=== PATIENT | female | born 1995 | race Two or more races ===

== ENCOUNTER 2017-06-21 23:31 | Emergency (ER) | payer SELFPAY ==
[~2017-06-21] VITALS: Ht 154.9 cm; Wt 72.6 kg
[~2017-06-21 23:31] MED LIST: LORAZEPAM0.5 MG ORAL; SYNTHROID25 MCG ORAL
[2017-06-21 23:35] VITALS: BP 106/75
[2017-06-22] VITALS (7 sets, daily range): BP systolic 91–103; BP diastolic 54–67
[2017-06-22 00:53] LABS: BASOPHILS % (AUTO) 0.8 % (0.0-2.0); EOSINOPHILS % (AUTO) 0.9 % (0.0-3.0); LYMPHOCYTES % (AUTO) 23.8 % (20.0-45.0); MEAN CORPUSCULAR HEMOGLOBIN 29.1 PG (27.0-31.0); MEAN CORPUSCULAR HGB CONC 33.6 G/DL (32.0-36.0); MEAN CORPUSCULAR VOLUME 87 FL (80-99); MEAN PLATELET VOLUME 10.6 FL (6.5-10.1); MONOCYTES % (AUTO) 7.7 % (1.0-10.0); NEUTROPHILS % (AUTO) 66.9 % (45.0-75.0); PLATELET COUNT 180 K/UL (150-450); RED BLOOD COUNT 3.88 M/UL (4.20-5.40); RED CELL DISTRIBUTION WIDTH 12.2 % (11.6-14.8); WHITE BLOOD COUNT 8.5 K/UL (4.8-10.8)
[2017-06-22 01:11] LABS: ACETAMINOPHEN < 10 ug/mL (10-30); ALANINE AMINOTRANSFERASE 6 U/L (3-33); ALBUMIN/GLOBULIN RATIO 1.3 (1.0-2.7); ALCOHOL < 10 mg/dL; ANION GAP 13 (5-15); ASPARTATE AMINO TRANSFERASE 14 U/L (5-40); CALCIUM 9.2 mg/dL (8.6-10.2); CARBON DIOXIDE 25 mEQ/L (20-30); CHLORIDE 103 mEQ/L (98-107); CREATININE 0.5 mg/dL (0.5-0.9); GLOMERULAR FILTRATION RATE > 60 mL/min (>60); HEMOLYSIS 0; POTASSIUM 3.3 mEQ/L (3.4-4.9); SODIUM 141 mEQ/L (135-145)
--- NOTE | 2017-06-22 01:34 | Emergency Room Report ---
History of Present Illness General Chief Complaint: Overdose Source: Patient, Family Member Present Illness HPI A 21-year-old female with a history of depression. She has multiple suicide attempts in the past. She took several Ativan tonight. Also cardiac or so. She said she been feeling depressed. Mom called 911. Mom said that his been worse since she had a miscarriage last year. Patient denies alcohol or other drug use. [facility] a previous psychiatric suicidal attempt. Allergies: Coded Allergies: No Known Allergies (Unverified , 06/21/17) Patient History Past Medical History: see triage record, old chart reviewed Past Surgical History: none Family History: none Social History: single Now: No Immunizations: other Reviewed Nursing Documentation: PMH: Agreed, PSxH: Agreed Nursing Documentation-PMH Past Medical History: No History, Except For History Of Psychiatric Problem: Yes - bipolar, depression Review of Systems ENT: Denies: sore throat Cardiovascular: Denies: chest pain, palpitations Gastrointestinal/Abdominal: Denies: nausea, vomiting, diarrhea Musculoskeletal: Denies: back problems Skin: Denies: rash Neurological: Denies: ANDERSON, seizures All Other Systems: negative except mentioned in HPI Physical Exam Vital Signs Date Time Temp Pulse Resp B/P (MAP) Pulse Ox O2 Delivery O2 Flow Rate FiO2 06/21/17 23:23 99.0 73 16 106/75 99 Room Air vitals normal Sp02 EP Interpretation: reviewed, normal General Appearance: no apparent distress, non-toxic, other - Sleepy Head: normocephalic, atraumatic Eyes: PERRL, EOMI ENT: oropharynx normal Neck: supple/symm/no masses Respiratory: effort normal, no rhonchi, no wheezing Cardiovascular: no murmur, gallop, rub Gastrointestinal: non-tender, no mass, non-distended, no rebound/guarding, normal bowel sounds Musculoskeletal: gait & station normal Neurologic: oriented x3, sensory intact, motor strength/tone normal Psychiatric: other - Crying Skin: no rash, normal palpation Medical Decision Making Diagnostic Impression: Primary Impression: Drug overdose Qualified Codes: T50.902A - Poisoning by unspecified drugs, medicaments and biological substances, intentional self-harm, initial encounter Additional Impression: Suicidal ideation ER Course Patient presents with suicidal deviation and drug overdose. She is now more awake and drug screen is negative however. She does have multiple small abrasion over both wrists. She is medically clear for psychiatric evaluation. Laboratory Tests Test 06/22/17 00:00 06/22/17 01:30 White Blood Count 8.5 K/UL (4.8-10.8) Red Blood Count 3.88 M/UL (4.20-5.40) L Hemoglobin 11.3 G/DL (12.0-16.0) L Hematocrit 33.6 % (37.0-47.0) L Mean Corpuscular Volume 87 FL (80-99) Mean Corpuscular Hemoglobin 29.1 PG (27.0-31.0) Mean Corpuscular Hemoglobin Concent 33.6 G/DL (32.0-36.0) Red Cell Distribution Width 12.2 % (11.6-14.8) Platelet Count 180 K/UL (150-450) Mean Platelet Volume 10.6 FL (6.5-10.1) H Neutrophils (%) (Auto) 66.9 % (45.0-75.0) Lymphocytes (%) (Auto) 23.8 % (20.0-45.0) Monocytes (%) (Auto) 7.7 % (1.0-10.0) Eosinophils (%) (Auto) 0.9 % (0.0-3.0) Basophils (%) (Auto) 0.8 % (0.0-2.0) Sodium Level 141 mEQ/L (135-145) Potassium Level 3.3 mEQ/L (3.4-4.9) L Chloride Level 103 mEQ/L (98-107) Carbon Dioxide Level 25 mEQ/L (20-30) Anion Gap 13 (5-15) Blood Urea Nitrogen 6 mg/dL (7-23) L Creatinine 0.5 mg/dL (0.5-0.9) Estimat Glomerular Filtration Rate > 60 mL/min (>60) Glucose Level 108 mg/dL (74-106) H Calcium Level 9.2 mg/dL (8.6-10.2) Total Bilirubin 0.3 mg/dL (0.0-1.2) Aspartate Amino Transf (AST/SGOT) 14 U/L (5-40) Alanine Aminotransferase (ALT/SGPT) 6 U/L (3-33) Alkaline Phosphatase 69 U/L (35-104) Total Protein 7.0 g/dL (6.6-8.7) Albumin 4.0 g/dL (3.5-5.2) Globulin 3.0 g/dL Albumin/Globulin Ratio 1.3 (1.0-2.7) Salicylates Level < 1 mg/dL (10-30) L Acetaminophen Level < 10 ug/mL (10-30) L Serum Alcohol < 10 mg/dL Urine Color Yellow Urine Appearance Clear Urine pH 6 (4.5-8.0) Urine Specific [place] 1.020 (1.005-1.035) Urine Protein 2+ (NEGATIVE) H Urine Glucose (UA) Negative (NEGATIVE) Urine Ketones 2+ (NEGATIVE) H Urine Occult Blood 5+ (NEGATIVE) H Urine Nitrite Negative (NEGATIVE) Urine Bilirubin Negative (NEGATIVE) Urine Urobilinogen Normal MG/DL (0.0-1.0) Urine Leukocyte Esterase 1+ (NEGATIVE) H Urine RBC 60-80 /HPF (0 - 2) H Urine WBC 2-4 /HPF (0 - 2) Urine Squamous Epithelial Cells Few /LPF (NONE/OCC) Urine Bacteria Few /HPF (NONE) Urine HCG, Qualitative Negative Urine Opiates Screen Negative (NEGATIVE) Urine Barbiturates Screen Negative (NEGATIVE) Phencyclidine (PCP) Screen Negative (NEGATIVE) Urine Amphetamines Screen Negative (NEGATIVE) Urine Benzodiazepines Screen Negative (NEGATIVE) Urine Cocaine Screen Negative (NEGATIVE) Urine Marijuana (THC) Screen Negative (NEGATIVE) Lab Results Impression labs normal Last Vital Signs Date Time Temp Pulse Resp B/P (MAP) Pulse Ox O2 Delivery O2 Flow Rate FiO2 06/21/17 23:35 99.0 16 106/75 99 Room Air 06/21/17 23:35 73 Status: improved Disposition: D/C TO LAW ENFORCEMENT IN [facility] Condition: Stable ALICE RAPHAEL M.D. Jun 22, 2017 01:34
[2017-06-22 01:47] LABS: APPEARANCE,URINE CLEAR; KETONES,URINE 2+ (NEGATIVE); PH,URINE 6 (4.5-8.0); PROTEIN,URINE 2+ (NEGATIVE); UROBILINOGEN,URINE NORMAL MG/DL (0.0-1.0)
[2017-06-22 01:53] LABS: LEUKOCYTE ESTERASE ,URINE 1+ (NEGATIVE); NITRITE,URINE NEGATIVE (NEGATIVE); RBC,URINE 60-80 /HPF (0 - 2); SQUAMOUS EPITHELIAL CELL,UR FEW /LPF (NONE/OCC)
[2017-06-22 01:54] LABS: BACTERIA,URINE FEW /HPF
[2017-06-22] MEDS ORDERED: LORazepam Inj 2mg/ml 1ml ONE (11:32)
[2017-06-22] MEDS ORDERED: LORazepam Inj 2mg/ml 1ml IV ONE (12:00)
--- NOTE | 2017-06-22 14:03 | Consultation ---
History of Present Illness General Chief Complaint: Overdose Present Illness HPI 21-year-old female with a history of depression, attempted suicide by taking 6 ativan (1mg). the pt endorses depressed mood, anhedonia, decrease energy and worthlessness. the pt stated that she has had a miscarriage and "the baby was supposed to born yesterday." the pt's mom was at bedside the pt has history of cutting and overdose in past. the pt was calm and cooperative and stated that she has a psychiatrist and would like to be discharged. the pts mom stated that she would like to take her home. the pt is seeing her psychiatrist on jun 29. she is on paxil and ativan. the pt is not endorsing any manic/psychotic/anxiety sxs/ the pt is not suicidal/homicidal Allergies: Coded Allergies: No Known Allergies (Unverified , 06/21/17) Medication History Scheduled Levothyroxine Sodium* (Synthroid*), 25 MCG ORAL DAILY, (Reported) Lorazepam* (Lorazepam*), 0.5 MG ORAL THREE TIMES A DAY, (Reported) Patient History History Provided By: Patient, Family Member, PMD Healthcare decision maker Resuscitation status Advanced Directive on File Past Medical/Surgical History Past Medical/Surgical History: (1) Drug overdose (2) Suicidal ideation Review of Systems Constitutional: Reports: malaise, weakness Psychiatric: Reports: see HPI, prior hx, depressed feelings Physical Exam General Appearance: no apparent distress, alert Neurologic: alert, oriented x 3, responsive, depressed affect Last 24 Hour Vital Signs Date Time Temp Pulse Resp B/P (MAP) Pulse Ox O2 Delivery O2 Flow Rate FiO2 06/22/17 13:30 60 14 95/54 99 Room Air 06/22/17 10:35 62 15 93/65 99 Room Air 06/22/17 08:43 55 14 103/67 99 Room Air 06/22/17 06:30 97.6 54 15 100/63 99 Room Air 06/22/17 04:30 58 14 101/65 98 Room Air 06/22/17 03:00 97.8 64 16 91/58 100 Room Air 06/21/17 23:35 99.0 16 106/75 99 Room Air 06/21/17 23:35 73 16 Room Air 06/21/17 23:23 99.0 73 16 106/75 99 Room Air Intake and Output 06/22/17 06/23/17 19:00 07:00 # Voids 2 Laboratory Tests Test 06/22/17 00:00 06/22/17 01:30 White Blood Count 8.5 K/UL (4.8-10.8) Red Blood Count 3.88 M/UL (4.20-5.40) L Hemoglobin 11.3 G/DL (12.0-16.0) L Hematocrit 33.6 % (37.0-47.0) L Mean Corpuscular Volume 87 FL (80-99) Mean Corpuscular Hemoglobin 29.1 PG (27.0-31.0) Mean Corpuscular Hemoglobin Concent 33.6 G/DL (32.0-36.0) Red Cell Distribution Width 12.2 % (11.6-14.8) Platelet Count 180 K/UL (150-450) Mean Platelet Volume 10.6 FL (6.5-10.1) H Neutrophils (%) (Auto) 66.9 % (45.0-75.0) Lymphocytes (%) (Auto) 23.8 % (20.0-45.0) Monocytes (%) (Auto) 7.7 % (1.0-10.0) Eosinophils (%) (Auto) 0.9 % (0.0-3.0) Basophils (%) (Auto) 0.8 % (0.0-2.0) Sodium Level 141 mEQ/L (135-145) Potassium Level 3.3 mEQ/L (3.4-4.9) L Chloride Level 103 mEQ/L (98-107) Carbon Dioxide Level 25 mEQ/L (20-30) Anion Gap 13 (5-15) Blood Urea Nitrogen 6 mg/dL (7-23) L Creatinine 0.5 mg/dL (0.5-0.9) Estimat Glomerular Filtration Rate > 60 mL/min (>60) Glucose Level 108 mg/dL (74-106) H Calcium Level 9.2 mg/dL (8.6-10.2) Total Bilirubin 0.3 mg/dL (0.0-1.2) Aspartate Amino Transf (AST/SGOT) 14 U/L (5-40) Alanine Aminotransferase (ALT/SGPT) 6 U/L (3-33) Alkaline Phosphatase 69 U/L (35-104) Total Protein 7.0 g/dL (6.6-8.7) Albumin 4.0 g/dL (3.5-5.2) Globulin 3.0 g/dL Albumin/Globulin Ratio 1.3 (1.0-2.7) Salicylates Level < 1 mg/dL (10-30) L Acetaminophen Level < 10 ug/mL (10-30) L Serum Alcohol < 10 mg/dL Urine Color Yellow Urine Appearance Clear Urine pH 6 (4.5-8.0) Urine Specific [place] 1.020 (1.005-1.035) Urine Protein 2+ (NEGATIVE) H Urine Glucose (UA) Negative (NEGATIVE) Urine Ketones 2+ (NEGATIVE) H Urine Occult Blood 5+ (NEGATIVE) H Urine Nitrite Negative (NEGATIVE) Urine Bilirubin Negative (NEGATIVE) Urine Urobilinogen Normal MG/DL (0.0-1.0) Urine Leukocyte Esterase 1+ (NEGATIVE) H Urine RBC 60-80 /HPF (0 - 2) H Urine WBC 2-4 /HPF (0 - 2) Urine Squamous Epithelial Cells Few /LPF (NONE/OCC) Urine Bacteria Few /HPF (NONE) Urine HCG, Qualitative Negative Urine Opiates Screen Negative (NEGATIVE) Urine Barbiturates Screen Negative (NEGATIVE) Phencyclidine (PCP) Screen Negative (NEGATIVE) Urine Amphetamines Screen Negative (NEGATIVE) Urine Benzodiazepines Screen Negative (NEGATIVE) Urine Cocaine Screen Negative (NEGATIVE) Urine Marijuana (THC) Screen Negative (NEGATIVE) Height (Feet): 5 Height (Inches): 1.00 Weight (Pounds): 160 Assessment/Plan Status: stable Assessment/Plan mood d/o, syst neg for benzo, borderline tendencies. the pt is not at imminent [id number] -pt to follow up with psychiatrist -rec to discuss med change with psychiatrist -mom will take her home Marie Olvera M.D. Jun 22, 2017 14:03
== END 2017-06-22 15:48 | disposition home or self-care (01) ==
LOC: EDBD 23:31 → EMR 23:51
DX: T50.902A Poisoning by unspecified drugs, medicaments and biological substances, intentional self-harm, initial encounter (principal); R45.851 Suicidal ideations; F31.9 Bipolar disorder, unspecified; S60.812A Abrasion of left wrist, initial encounter; S60.811A Abrasion of right wrist, initial encounter; X58.XXXA Exposure to other specified factors, initial encounter; Y92.9 Unspecified place or not applicable
CPT/HCPCS: 36415; 80053; 80300; 81003; 81025; 85025; 96361; 96374; 99284; G0480; 80329

== ENCOUNTER 2019-02-14 11:01 | Emergency (ER) | payer SELFPAY ==
[~2019-02-14] VITALS: Ht 162.6 cm; Wt 61.2 kg
[2019-02-14] MEDS ORDERED: ATIVAN2 MG ORAL (11:02)
--- NOTE | 2019-02-14 11:05 | NUR ---
ED Nurse Note: Pt BIBA from work s/p seizure. According ot EMS, it was witnessed and she was shaking for 4 mins. Per EMS, it is a pseudo seizure that is anxiety enduced. Pt presented in the ER shaking. Denies having pain. Side rails padded and pt is sating at 100% on RA. Pt is A + O x4. Ambulatory. Skin warm to touch.
[2019-02-14 11:07] VITALS: BP 113/66
[2019-02-14] MEDS ORDERED: LORazepam Inj 2mg/ml 1ml IV ONE (11:30)
[2019-02-14 12:23] VITALS: BP 105/66
--- NOTE | 2019-02-14 12:24 | NUR ---
ER DISCHARGE NOTE: Patient is cleared to be discharged per ERMD, pt is aox4, on room air, with stable vital signs. pt was given dc and prescription instructions, pt was able to verbalize understanding, pt id band and iv site removed without complications. pt is able to ambulate with steady gait. pt took all belongings.
--- NOTE | 2019-02-14 14:03 | Emergency Room Report ---
History of Present Illness General Chief Complaint: Seizure Source: Patient, EMS Present Illness HPI 23-year-old female presents ED for evaluation. Patient brought in by EMS. Patient states that she had a "pseudoseizure" at work today. States that she has history of anxiety when anxiety gets bad she presents like a pseudoseizure. States that she sat herself on the ground. No head injury. Upon arrival patient appears tremulous and anxious. States that she takes Ativan for anxiety. States that recently she's been having more anxiety episodes due to problems at home. Denies alcohol or drug use. Denies hearing voices. No other aggravating relieving factors. Denies any other associated symptoms Allergies: Coded Allergies: No Known Allergies (Unverified , 06/21/17) Patient History Past Medical History: psych hx Past Surgical History: none Pertinent Family History: none Social History: Denies: smoking, alcohol use, drug use Last Menstrual Period: 02/14/19 Now: No Immunizations: UTD Reviewed Nursing Documentation: PMH: Agreed; PSxH: Agreed Nursing Documentation-PMH Past Medical History: No History, Except For Hx Seizures: Yes Review of Systems All Other Systems: negative except mentioned in HPI Physical Exam Vital Signs Date Time Temp Pulse Resp B/P (MAP) Pulse Ox O2 Delivery O2 Flow Rate FiO2 02/14/19 10:56 98.6 76 21 130/76 97 Room Air 02/14/19 11:07 100 Sp02 EP Interpretation: reviewed, normal General Appearance: no apparent distress, alert, GCS 15, non-toxic Head: normocephalic, atraumatic Eyes: bilateral eye normal inspection, bilateral eye PERRL ENT: hearing grossly normal, normal pharynx, no angioedema, normal voice Neck: full range of motion, supple/symm/no masses Respiratory: chest non-tender, lungs clear, normal breath sounds, speaking full sentences Cardiovascular #1: regular rate, rhythm, no edema Cardiovascular #2: 2+ carotid (R), 2+ carotid (L), 2+ radial (R), 2+ radial (L) , 2+ dorsalis pedis (R), 2+ dorsalis pedis (L) Gastrointestinal: normal bowel sounds, non tender, soft, non-distended, no guarding, no rebound Rectal: deferred Genitourinary: normal inspection, no CVA tenderness Musculoskeletal: back normal, gait/station normal, normal range of motion, non- tender Neurologic: alert, oriented x3, responsive, motor strength/tone normal, sensory intact, speech normal Psychiatric: judgement/insight normal, memory normal, no suicidal/homicidal ideation, no delusions, anxious Reflexes: 3+ bicep (R), 3+ bicep (L), 3+ tricep (R), 3+ tricep (L), 3+ knee (R) , 3+ knee (L) Skin: normal color, no rash, warm/dry, well hydrated Lymphatic: no adenopathy Medical Decision Making Diagnostic Impression: Primary Impression: Anxiety ER Course Hospital Course 23-year-old female presents with episode of pseudoseizure at work. History of anxiety. No head injury Differential diagnoses include: anxiety, seizure, psychosis Clinical course Patient placed on stretcher. on school lunch monitor. After initial history, physical exam reveals female in no acute distress. Initially on arrival patient appeared tremulous and tearful. During assessment at bedside patient appears more calm and relaxed. No focal neurological deficits. Documents history of anxiety. States that when anxiety attack gets bad she starts to have a pseudoseizure. Patient states she was prescribed Ativan by her PMD. Has not yet been seen by psychiatrist. Patient given Ativan 1 mg here. On reassessment is feeling better. Vital stable. Family at bedside to take patient home. Safe for discharge close outpatient follow-up. I'll provide mental health referrals I. I feel this is a highly complex case requiring extensive working including EKG/Rhythm strip, Xray/CT/US, Blood/urine lab work, repeat exams while in ED, and administration of strong opiates/narcotics for pain control, admission to hospital or close patient follow up. Diagnosis - anxiety Stable and discharged to home. Followup with PMD/psych. Return to ED if symptoms recur or worse Last Vital Signs Date Time Temp Pulse Resp B/P (MAP) Pulse Ox O2 Delivery O2 Flow Rate FiO2 02/14/19 12:23 98.3 75 20 105/66 98 Room Air 100 Status: improved Disposition: HOME, SELF-CARE Condition: Stable Referrals: NOT CHOSEN IPA/MD,REFERRING (PCP) [facility] + [facility] Psych ER - Peds ER - [facility] Intake Hotline - Patient Instructions: Panic Attacks, Akio-in-Euqp Alcides Araiza MD Feb 14, 2019 14:03
== END 2019-02-14 12:24 | disposition home or self-care (01) ==
LOC: EDBD 11:01 → EMR 11:25
DX: F41.9 Anxiety disorder, unspecified (principal)
CPT/HCPCS: 96374; 99284

== ENCOUNTER 2019-05-23 10:17 | Emergency (ER) | payer OTHER ==
[~2019-05-23] VITALS: Ht 154.9 cm; Wt 81.6 kg
[~2019-05-23 10:17] MED LIST changes: +ATIVAN2 MG ORAL
--- NOTE | 2019-05-23 10:26 | NUR ---
ED Nurse Note: PT BROUGHT IN BY AMBULANCE FROM WORK DUE TO SEIZURE ACTIVITY POST TICTAL. AAO X4, FOLLOWS COMMANDS WITH NON LABORED BREATHING. SEIZURE PRECAUTIONS ARE IMPLEMENTED. SEE INTERVENTIONS. WAITING FOR ORDERS.
--- NOTE | 2019-05-23 10:30 | NUR ---
ED Nurse Note: COLLECTE DBLOOD/URINE THEN SENT.
[2019-05-23 10:31] VITALS: BP 91/61
[2019-05-23 10:40] LABS: APPEARANCE,URINE SLIGHTLY CLOUDY; BASOPHILS % (AUTO) 1.6 % (0.0-2.0); BILIRUBIN, URINE NEGATIVE (NEGATIVE); COLOR,URINE PALE YELLOW; EOSINOPHILS % (AUTO) 3.6 % (0.0-3.0); GLUCOSE, URINE (UA) NEGATIVE (NEGATIVE); HEMATOCRIT 36.4 % (37.0-47.0); HEMOGLOBIN 11.9 G/DL (12.0-16.0); KETONES,URINE 1+ (NEGATIVE); LEUKOCYTE ESTERASE ,URINE 2+ (NEGATIVE); MEAN CORPUSCULAR VOLUME 87 FL (80-99); MONOCYTES % (AUTO) 6.7 % (1.0-10.0); NEUTROPHILS % (AUTO) 54.2 % (45.0-75.0); NITRITE,URINE NEGATIVE (NEGATIVE); PH,URINE 5 (4.5-8.0); PLATELET COUNT 192 K/UL (150-450); PROTEIN,URINE NEGATIVE (NEGATIVE); RED BLOOD COUNT 4.21 M/UL (4.20-5.40); RED CELL DISTRIBUTION WIDTH 12.4 % (11.6-14.8); UROBILINOGEN,URINE NORMAL MG/DL (0.0-1.0); WHITE BLOOD COUNT 6.6 K/UL (4.8-10.8)
--- NOTE | 2019-05-23 10:51 | Emergency Room Report ---
History of Present Illness General Chief Complaint: Seizure Source: Medical Record Present Illness HPI Patient is a 23-year-old female brought in by EMS after possible seizure activity. Patient a prior history of anxiety and had previously been taking Ativan. She was noted to have some episode of difficulty with respirations. This resolved spontaneously after being given medications by EMS. She had been given Versed 2.5 mg. She was noted to have some shaking episodes. She denies being . She states she only takes Ativan. She had previous history of some psychiatric disease and had previous voluntary admission to psychiatric facility. She denies any current discomfort. Allergies: Coded Allergies: No Known Allergies (Unverified , 06/21/17) Patient History Past Medical History: see triage record Last Menstrual Period: 04/24/19 Reviewed Nursing Documentation: PMH: Agreed; PSxH: Agreed Nursing Documentation-PMH Past Medical History: No History, Except For Hx Seizures: Yes Review of Systems All Other Systems: negative except mentioned in HPI Physical Exam Vital Signs Date Time Temp Pulse Resp B/P (MAP) Pulse Ox O2 Delivery O2 Flow Rate FiO2 05/23/19 10:16 97.9 88 16 90/70 (77) 99 Room Air Sp02 EP Interpretation: reviewed, normal General Appearance: normal inspection, well appearing, no apparent distress, alert, GCS 15 Head: atraumatic ENT: normal ENT inspection, hearing grossly normal, normal voice Neck: normal inspection, full range of motion, supple, no bony tend Respiratory: normal inspection, lungs clear, normal breath sounds, no respiratory distress, no retraction, no wheezing Cardiovascular #1: regular rate, rhythm, no edema Gastrointestinal: normal inspection, normal bowel sounds, non tender, soft, no guarding, no hernia Genitourinary: no CVA tenderness Musculoskeletal: normal inspection, back normal, normal range of motion Neurologic: normal inspection, alert, oriented x3, responsive, yeast culture developer III-XII nml as tested, speech normal Psychiatric: normal inspection, judgement/insight normal, mood/affect normal Medical Decision Making Diagnostic Impression: Primary Impression: Anxiety ER Course Patient presented for difficulty with respirations and shaking episode. Differential diagnosis included anxiety, medication withdrawal, allergic reaction, seizure among others. Patient has a benign exam and does not appear to require any further imaging or laboratory testing at this time. Patient appears to have some anxiety. She is given benzodiazepine with improvement.Patient was noted to have unremarkable laboratory testing as well as negative test. Patient was noted to have improvement after medications. She states she felt better want to go home. Patient does not appear to have any evidence of seizure. And patient's episode appears to be more related to anxiety. She was discharged home in stable condition. Labs Test 05/23/19 10:23 White Blood Count 6.6 K/UL (4.8-10.8) Red Blood Count 4.21 M/UL (4.20-5.40) Hemoglobin 11.9 G/DL (12.0-16.0) Hematocrit 36.4 % (37.0-47.0) Mean Corpuscular Volume 87 FL (80-99) Mean Corpuscular Hemoglobin 28.2 PG (27.0-31.0) Mean Corpuscular Hemoglobin Concent 32.6 G/DL (32.0-36.0) Red Cell Distribution Width 12.4 % (11.6-14.8) Platelet Count 192 K/UL (150-450) Mean Platelet Volume 9.8 FL (6.5-10.1) Neutrophils (%) (Auto) 54.2 % (45.0-75.0) Lymphocytes (%) (Auto) 34.0 % (20.0-45.0) Monocytes (%) (Auto) 6.7 % (1.0-10.0) Eosinophils (%) (Auto) 3.6 % (0.0-3.0) Basophils (%) (Auto) 1.6 % (0.0-2.0) Urine Color Pale yellow Urine Appearance Slightly cloudy Urine pH 5 (4.5-8.0) Urine Specific [place] 1.015 (1.005-1.035) Urine Protein Negative (NEGATIVE) Urine Glucose (UA) Negative (NEGATIVE) Urine Ketones 1+ (NEGATIVE) Urine Blood Negative (NEGATIVE) Urine Nitrite Negative (NEGATIVE) Urine Bilirubin Negative (NEGATIVE) Urine Urobilinogen Normal MG/DL (0.0-1.0) Urine Leukocyte Esterase 2+ (NEGATIVE) Urine RBC 2-4 /HPF (0 - 2) Urine WBC 2-4 /HPF (0 - 2) Urine Squamous Epithelial Cells Moderate /LPF (NONE/OCC) Urine Bacteria Many /HPF (NONE) Urine HCG, Qualitative Negative (NEGATIVE) Sodium Level 138 MMOL/L (136-145) Potassium Level 3.5 MMOL/L (3.5-5.1) Chloride Level 104 MMOL/L (98-107) Carbon Dioxide Level 26 MMOL/L (21-32) Anion Gap 8 mmol/L (5-15) Blood Urea Nitrogen 11 mg/dL (7-18) Creatinine 0.5 MG/DL (0.55-1.30) Estimat Glomerular Filtration Rate > 60 mL/min (>60) Glucose Level 83 MG/DL (74-106) Calcium Level 8.7 MG/DL (8.5-10.1) Total Bilirubin 0.6 MG/DL (0.2-1.0) Aspartate Amino Transf (AST/SGOT) 14 U/L (15-37) Alanine Aminotransferase (ALT/SGPT) 9 U/L (12-78) Alkaline Phosphatase 63 U/L (46-116) Total Protein 7.3 G/DL (6.4-8.2) Albumin 3.6 G/DL (3.4-5.0) Globulin 3.7 g/dL Albumin/Globulin Ratio 1.0 (1.0-2.7) Salicylates Level 1.2 ug/mL (2.8-20) Urine Opiates Screen Negative (NEGATIVE) Acetaminophen Level < 2 MCG/ML (10-30) Urine Barbiturates Screen Negative (NEGATIVE) Phencyclidine (PCP) Screen Negative (NEGATIVE) Urine Amphetamines Screen Negative (NEGATIVE) Urine Benzodiazepines Screen Positive (NEGATIVE) Urine Cocaine Screen Negative (NEGATIVE) Urine Marijuana (THC) Screen Negative (NEGATIVE) Serum Alcohol < 3 mg/dL Last Vital Signs Date Time Temp Pulse Resp B/P (MAP) Pulse Ox O2 Delivery O2 Flow Rate FiO2 05/23/19 10:31 97.9 65 17 91/61 100 Room Air Status: improved Disposition: HOME, SELF-CARE Condition: Stable Marcus Nicolas MD May 23, 2019 10:51
[2019-05-23] MEDS ORDERED: cefTRIAXone 1 GM in NS 55 ML IVPB ONE (11:00)
[2019-05-23 11:01] LABS: ANION GAP 8 mmol/L (5-15); BLOOD UREA NITROGEN 11 mg/dL (7-18); CALCIUM 8.7 MG/DL (8.5-10.1); CARBON DIOXIDE 26 MMOL/L (21-32); CHLORIDE 104 MMOL/L (98-107); CREATININE 0.5 MG/DL (0.55-1.30); POTASSIUM 3.5 MMOL/L (3.5-5.1); SODIUM 138 MMOL/L (136-145)
[2019-05-23 11:07] LABS: ALANINE AMINOTRANSFERASE 9 U/L (12-78); ALBUMIN 3.6 G/DL (3.4-5.0); ALKALINE PHOSPHATASE 63 U/L (46-116); ASPARTATE AMINO TRANSFERASE 14 U/L (15-37); BILIRUBIN,TOTAL 0.6 MG/DL (0.2-1.0)
[2019-05-23 12:45] VITALS: BP 96/59
--- NOTE | 2019-05-23 13:48 | NUR ---
ED Nurse Note: Pt resting on her be dwith no distress. VSS. Seizure precautions still implemented.
[2019-05-23 14:22] VITALS: BP 101/60
== END 2019-05-23 14:22 | disposition home or self-care (01) ==
LOC: EDBD 10:17 → EMR 10:35
DX: F41.9 Anxiety disorder, unspecified (principal); G40.909 Epilepsy, unspecified, not intractable, without status epilepticus
CPT/HCPCS: 36415; 80053; 80307; 80329; 81003; 81025; 85025; 87086; 96361; 96365; 99284; J0696